=== PATIENT | female | born 1965 | race Caucasian/White ===

== ENCOUNTER 2021-11-09 12:40 | Emergency (ER) | payer BC, SELFPAY ==
[2021-11-09 12:41] VITALS: BP 128/98; PULSE 63; RESP 16; TEMP 36.2; O2SAT 100; BMI 22.8
--- NOTE | 2021-11-09 12:57 | CT_ITS ---
We are attempting to reach an attending provider to discuss findings. An addendum with communication details will be sent when the communication is complete. STUDY: CTA HEAD AND NECK WITH CONTRAST REASON FOR EXAM: Female, 56 years old. Headache. RADIATION DOSAGE (If Supplied By Facility): CTDIvol = ( 27.58 ) mGy, DLP = ( 1430.71 ) mGycm TECHNIQUE: CT angiography was performed with a multi-detector CT scanner. Data acquisition was obtained from the skull base through the vertex following intravenous administration of IV 100mL [id number]-[id number]. MIP images were reconstructed from the axial data set. Post-processing of the angiographic images was performed, with multiplanar reformation and 3D reconstruction. Individualized dose optimization techniques were used for this CT. COMPARISON: No relevant priors. FINDINGS: Normal bilateral petrous carotid arteries. Normal right cavernous carotid artery with a normal supraclinoid bifurcation. Normal left cavernous carotid artery with a normal supraclinoid bifurcation. Normal right A1 segments of the anterior cerebral artery. There is narrowing of the left A1 segment of the anterior cerebral arteries likely due to hypoplastic development. Normal intact anterior communicating artery (ACOM). Normal bilateral A2 segments of the anterior cerebral arteries. Normal right M1 and M2 segments of the middle cerebral arteries, with a normal M1 bifurcation. Normal left M1 and M2 segments of the middle cerebral arteries, with a normal M1 bifurcation. Normal right posterior communicating artery (PCOM). 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 Normal bilateral vertebral arteries. Normal basilar artery with a normal basilar bifurcation. The visualized bilateral superior cerebellar (SCA) arteries are normal. There is no demonstrated aneurysm of the [place]. The visualized noncontrast CT scan of the brain demonstrates hypodense area in the posterior left parietal region with loss of the herman-white matter radiation and vague increased density concerning for acute hemorrhagic stroke. AORTIC ARCH: Normal visualized aortic arch. Normal origins of the brachiocephalic, left common carotid, and left subclavian arteries. RIGHT CAROTID ARTERIES: Normal right common carotid artery (CCA). Normal right common carotid bulb. Normal origin of the right internal carotid (ICA) artery without a hemodynamically significant stenosis. Normal visualized cervical portion of the right internal carotid artery. Normal origin of the right external carotid artery (ECA). LEFT CAROTID ARTERIES: Normal left common carotid artery (CCA). Normal left common carotid bulb. Normal origin of the left internal carotid (ICA) artery without a hemodynamically significant stenosis. Normal visualized cervical portion of the left internal carotid artery. Normal origin of the left external carotid artery (ECA). VERTEBRAL ARTERIES: Normal bilateral vertebral arteries. IMPRESSION: 1. 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 2. Otherwise no evidence of intracranial great vessel stenosis. 3. Unremarkable common and internal carotid arteries bilaterally. 4. Patent bilateral vertebral arteries. 5. Findings consistent with acute hemorrhagic stroke in the posterior left parietal region. MRI of the brain is recommended. Electronically Signed: Elian Almasilvestrejose david, at 14:23 EST Tel , Service support , STUDY: CT BRAIN WITHOUT CONTRAST REASON FOR EXAM: Female, 56 years old. Headache. RADIATION DOSAGE (If Supplied By Facility): CTDIvol = ( ) mGy, DLP = ( ) mGycm TECHNIQUE: Transaxial CT imaging of the brain was performed without administration of intravenous contrast material. Individualized dose optimization techniques were used for this CT. COMPARISON: No relevant priors. FINDINGS: Normal soft tissue structures. Normal calvarium. Normal size ventricles and extra-axial spaces for the patient''s age. Vague area of decreased attenuation in the posterior left parietal and occipital regions on axial images 19-21 series 2 with area of increased attenuation concerning for hemorrhagic stroke. Normal basal ganglia and thalami. Normal brainstem. Normal cerebellum. There is no intracranial hemorrhage. There are no findings of an acute ischemic infarction. Normal visualized paranasal sinuses. CT/CTA Head AND Neck W/ Contrast IMPRESSION: Vague area of decreased attenuation in the posterior left parietal and occipital region concerning for acute hemorrhagic stroke. MRI of the brain is recommended. Electronically Signed: Elian Lamar, at 14:26 EST Tel , Service support ,
--- NOTE | 2021-11-09 12:59 | EX.ED.VIS.HA ---
HPI History of Present Illness Chief Complaint: Headache Detail of Chief Complaint: Headache that started on October 30 Informant: patient Narrative Narrative: Patient presents to the emergency department with complaint of severe headache that started October 30. Patient states that the headache came on suddenly. Patient has history of migraines but this is completely different than any headache she is ever had. Patient states that she was seen at [facility] on the and was medicated but no imaging was performed. Patient did not improve with treatment there. Patient states the headache has been continuous and she rates her headache a 10 out of 10. She has had nausea and vomiting and states she cannot keep anything down. Patient tells me she is lost 15 pounds in the last 10 days. Patient complains of photophobia. Patient was seen by her primary care physician who helped arrange outpatient neurology follow-up for the patient in 2 days. Patient currently being treated with Topamax and Breverly. No family history of brain tumors or aneurysms known. Patient has not had any falls or head injuries. She denies any fever or cough. She does complain of some mild body aches. Patient lives alone and states that she has carbon monoxide detectors and she does not have any concern about carbon monoxide. Prior similar symptoms: No PFSH [facility] Medical History (Updated 11/09/21 @ 15:[address] Jose Angel Wilson DO) Hypothyroid Migraine Allergy/AdvReac Type Severity Reaction Status Date / Time No Known Allergies Allergy Verified 11/09/21 12:42 Social History Smoking Status: Current every day smoker tobacco type: cigarettes ROS ROS ED Constitutional Constitutional ED: Reports systems reviewed and no addt'l complaints, except as documented; Denies body ache(s), change in weight or chills Eyes Eyes: Reports other Details: Photophobia ; Denies acute decrease in peripheral vision, change in vision, double vision or loss of vision ENT ENT ED: Reports none; Denies ear pain, lip swelling, loss taste/smell, neck pain, otalgia or sore throat Cardiovascular Cardiovascular: Reports none; Denies abdominal pain, chest pain with activity, leg edema, lightheadedness, palpitations, rapid heart rate or syncope Respiratory/Chest Respiratory/Chest: Reports none; Denies change in mental status, dry cough, dyspnea, hemoptysis, shortness of breath at rest or shortness of breath with exertion Gastrointestinal Gastrointestinal: Reports none, nausea and vomiting; Denies abdominal pain, change in stool character, diarrhea, hematemesis, hematochezia, melena or rectal bleeding Genitourinary Genitourinary ED: Reports none; Denies abdominal discomfort, anuria, dysuria, genital pain or polyuria Musculoskeletal Musculoskeletal: Reports none; Denies arthralgias, back pain, difficulty walking, extremity pain, muscle weakness or myalgias Integumentary Reports none; Denies abscess or rash Neurologic Neurologic: Reports none and headache(s); Denies abnormal gait, confusion, focal weakness, frequent falls, loss of vision, numbness, paresthesias, radicular pain, vertigo or weakness Psychiatric Psychiatric: Reports systems reviewed and no addt'l complaints, except as documented and none; Denies behavioral changes, confusion, difficulty concentrating, hallucinations, suicidal ideation, tactile hallucinations or visual hallucinations Endocrine Endocrinology: Denies none, cold intolerance, excessive sweating, fatigue or heat intolerance Hematologic/Lymphatic Hematologic/Lymphatic: Reports none; Denies anemia, easy bleeding or easy bruising Allergic/Immunologic Allergic/Immunologic ED: Denies as per HPI, none, lip swelling, mouth swelling, throat swelling, tongue swelling or hives EXAM Physical Exam Const Vital Signs: 11/09/21 12:41 11/09/21 15:03 Temperature 97.1 F L Temperature Source Temporal Pulse Rate 63 67 Respiratory Rate 16 19 H Blood Pressure 128/98 H 125/78 H Blood Pressure Mean 108 93 Pulse Ox 100 100 Oxygen Delivery Method Room Air Positive well nourished and well developed General Appearance ED: well developed and NAD HEENT Reports TM's clear and moist mucous membranes normocephalic and atraumatic; Negative for trauma or tenderness Tympanic Membrane ED: Yes TM's clear Eyes PERRL and EOMs intact bilaterally General Eye ED: Negative for pale conjunctiva or scleral icterus Neck no lymphadenopathy, supple and no JVD General: Negative for tenderness Chest Wall inspection of chest normal and palpation of chest normal Chest: Negative for tenderness Resp normal respiratory effort and clear to auscultation bilaterally Effort and Inspection: Negative for respiratory distress or pain with movement Auscultation: Negative for rhonchi, wheezes or diminished lung sounds Cardio regular rate, regular rhythm, S1 normal heart sound, S2 normal heart sound and no murmurs Peripheral Pulses: pulses 2+ throughout GI normal to inspection, nondistended, normoactive bowel sounds, soft to palpation, non-tender, non-distended and no masses Back/Spine no CVA tenderness and no thoracic nor lumbar tenderness Extremity normal to inspection General Extremety ED: Negative for edema General Extremity: Negative for edema Neuro oriented x3, CN's II-XII intact bilaterally, no sensory deficits noted and gait normal Neuro Narrative: Finger-nose and heel jack testing within normal limits, negative Romberg, negative pronator drift, fundi benign Sensorium / Orientation: awake, alert, oriented to person, oriented to place and oriented to time Motor Exam: strength 5/5 throughout and strength abnormal Psych mental status grossly normal Skin no rashes or lesions noted and no wounds MDM MDM MDM Narrative Medical decision making narrative: IV line established on arrival. Patient was treated with Reglan, Benadryl, and Toradol IV. She had improvement in her nausea but her headache continued to have significant discomfort. She was then ordered Depakote 1 g IV. CTA of head and neck obtained interpreted by radiology as area of decreased attenuation to the left parietal occipital lobe with area of increased attenuation concerning for hemorrhagic stroke. Discussed results with patient and her family. Initially they requested transfer to [place] if possible however [facility] do not have bed availability. Patient was accepted at [facility] and will be seen in their emergency department. Patient was written for morphine and Zofran. Lab Data Attestation: I reviewed the patient's lab results. Labs: Laboratory Results - last 24 hr 11/09/21 11/09/21 13:10 13:10 WBC 9.1 RBC 4.94 Hgb 16.0 H Hct 45.8 MCV 92.7 MCH 32.4 H MCHC 34.9 RDW Std Deviation 39.2 RDW Coeff of Thompson 11.5 L Plt Count 430 MPV 10.1 Immature Gran % (Auto) 0.300 Neut % (Auto) 62.1 Lymph % (Auto) 30.0 Price % (Auto) 6.4 Eos % (Auto) 0.8 Baso % (Auto) 0.4 Absolute Neuts (auto) 5.7 Absolute Lymphs (auto) 2.74 Nucleated RBC % 0 ESR 2 Sodium 137 Potassium 3.0 L Chloride 104 Carbon Dioxide 23.0 Anion Gap 10 BUN 9 Creatinine 1.10 H Estim Creat Clear Calc 58.98 Est GFR (MDRD) Af Amer 66 Est GFR (MDRD) Non-Af 55 L BUN/Creatinine Ratio 8.2 L Glucose 107 H Calcium 10.1 ABG Data ABG results: ABG 11/09/21 13:10 VBG Carboxyhemoglobin 4.0 H Radiography Diagnostic Testing: Clinical Impression(s) from Imaging Studies Head/Neck CTA 11/09/21 12:57 IMPRESSION: Vague area of decreased attenuation in the posterior left parietal and occipital region concerning for acute hemorrhagic stroke. MRI of the brain is recommended. Electronically Signed: Elian Lamar, at 14:26 EST Tel , Service support , ADDENDUM: 11/09/21 1435 IMPRESSION: Vague area of decreased attenuation in the posterior left parietal and occipital region concerning for acute hemorrhagic stroke. MRI of the brain is recommended. N.B. : The above Results were Read Back by Eilan Lamar to Jose Angel Wilson MD, AA, and understanding confirmed on 11/09/2021 14:28:38 (ET). Electronically Signed: Elian Lamar, at 14:26 EST Tel , Service support , Discharge Plan Triage Chief Complaint: Headache ED Provider: Jose Angel Wilson Dx/Rx/DC Orders Clinical Impression: Acute intractable headache, Intracranial hemorrhage Referrals: KEELY WEINBERG [Other] Disposition Disposition: Transfer to Another Type [facility]
[2021-11-09] MEDS: DiphenhydrAMINE 50 MG/ML Syringe 25 MG IV (13:16)
[2021-11-09] MEDS: Ketorolac 15 MG/ML Vial IV (13:16)
[2021-11-09] MEDS: Metoclopramide 10 MG/2 ML Vial IV (13:16)
[2021-11-09] MEDS: 0.9% Normal Saline 1,000 ML 1000 ML IV (13:16)
[2021-11-09 13:29] LABS: Erythrocyte Sedimentation Rate 2 mm/hr (0-30)
[2021-11-09 13:31] LABS: Absolute Lymphocyte Count 2.74 X10^3/uL (0.83-4.51); Absolute Neutrophil Count 5.7 X10^3/uL (2.0-7.7); Basophil# 0.04 X10^3/uL; Basophil% 0.4 % (0-1); Eosinophil# 0.07 X10^3/uL; Eosinophils% 0.8 % (0-5); Hematocrit 45.8 % (37-47); Lymphocyte # 2.74 X10^3/ul (0.83-4.51); Mean Corp Hgb Conc 34.9 g/dL (32-36); Mean Corpuscular Hgb 32.4 pg (27.0-32.0); Mean Corpuscular Volume 92.7 fL (81-99); Mean Platelet Vol. 10.1 fl (6.2-12.0); Monocyte# 0.58 X10^3/uL; Monocyte% 6.4 % (0-10); NRBC Flagged by Analyzer 0 % (0-5); Neutrophil # 5.67 X10^3/uL (2.7-7.7); Neutrophil % 62.1 % (47-70); Platelet Count 430 K/mm3 (150-450); RBC Distribution Width CV 11.5 % (11.6-14.6); RBC Distribution Width SD 39.2 fl (35.1-43.9); Red Blood Count 4.94 M/mm3 (4.2-5.4); White Blood Count 9.1 K/mm3 (4.4-11.0)
[2021-11-09 13:33] LABS: Anion Gap 10 (5-15); BUN 9 mg/dL (7-18); BUN/Creat Ratio 8.2 RATIO (10-20); Calcium,Total 10.1 mg/dL (8.5-10.1); Chloride 104 mmol/L (98-107); EST Glomerular Filtration Rate 55 mL/min (>60); Est Glom Filt Rate - Afr Amer 66 mL/min (>60); Estimated Creatinine Clearance 58.98 ml/min; Glucose 107 mg/dL (74-106); Sodium Level 137 mmol/L (136-145)
[2021-11-09 15:03] VITALS: BP 125/78; PULSE 67; RESP 19; O2SAT 100
[2021-11-09] MEDS: Morphine 4 MG/ML Syringe IV (15:30)
[2021-11-09] MEDS: Ondansetron 4 MG/2 ML Vial IV (15:31)
[2021-11-09 15:40] VITALS: BP 128/91; PULSE 56; RESP 16; O2SAT 100
== END 2021-11-09 15:54 | disposition other institution (70) ==
PROVIDERS: Emergency Provider Emergency Medicine; Visit Provider Emergency Medicine
DX: I62.9 Nontraumatic intracranial hemorrhage, unspecified (principal); R51.9 Headache, unspecified; F17.210 Nicotine dependence, cigarettes, uncomplicated
CPT/HCPCS: 70496; 70498; 80048; 82375; 85025; 85652; 87426; 96365; 96375; 99285; J7030; Q9967; A4216; J2405